=== PATIENT | female | born 1950 | race Caucasian/White ===

== ENCOUNTER 2018-03-20 15:29 | Emergency (ER) | payer MEDICARE, OTHER ==
[~2018-03-20] VITALS: Ht 149.9 cm; Wt 52.2 kg
[~2018-03-20 15:29] MED LIST: ASPIR 8181 MG PO; LISINOPRIL10 MG PO; SINGULAIR 10 MG10 M1 PO
[2018-03-20] MEDS ORDERED: SYMBICORT160 MCG/4. INH (15:39)
[2018-03-20] MEDS ORDERED: DEXILANT60 MG PO (15:39)
[2018-03-20 16:02] LABS: ABSOLUTE MONOCYTES 0.4 thou/uL (0.0-1.2); ABSOLUTE NEUTROPHILS 2.9 thou/uL (1.6-8.1); BASOPHILS 0.7 %; EOSINOPHILS 0.8 %; HEMATOCRIT 37.5 % (37.0-47.0); HEMOGLOBIN 12.9 gm/dL (12.0-15.0); LYMPHOCYTES 22.7 %; MCH 33.3 pg (26.0-34.0); MCHC 34.4 g/dL (28.0-37.0); MCV 96.8 fL (80.0-100.0); MPV 7.1 fl. (7.2-11.1); NUCLEATED RBCS 0 /100WBC; PLATELET COUNT* 272 thou/uL (150-400); POLYS 66.8 %; RBC 3.87 mil/uL (4.20-5.00); WBC 4.4 thou/uL (4.0-11.0)
[2018-03-20 16:07] LABS: URINE BILIRUBIN NEGATIVE (Negative); URINE BLOOD 1+ (Negative); URINE CLARITY CLEAR; URINE COLOR YELLOW; URINE GLUCOSE-RANDOM NEGATIVE (Negative); URINE KETONES NEGATIVE (Negative); URINE LEUKOCYTES-REFLEX 1+ (Negative); URINE NITRITE-REFLEX NEGATIVE (Negative); URINE PROTEIN NEGATIVE (Negative); URINE SPECIFIC GRAVITY <= 1.005 (1.005-1.030); URINE UROBILINOGEN 0.2 E.U./dl (0.2-1.0)
[2018-03-20 16:10] LABS: ANION GAP 9 mmol/L (7-16); BUN 6 mg/dL (7-18); CALCIUM 8.7 mg/dL (8.5-10.1); CHLORIDE 91 mmol/L (98-107); CO2 25 mmol/L (21-32); CREATININE 0.7 mg/dL (0.6-1.3); GLUCOSE 93 mg/dL (70-99); POTASSIUM 3.9 mmol/L (3.5-5.1); SODIUM 125 mmol/L (136-145)
[2018-03-20 16:15] LABS: BACTERIA-REFLEX None Seen /HPF (None Seen); CASTS None Seen /LPF (None Seen); CRYSTALS None Seen /LPF (None Seen); SQUAMOUS 0-3 Few /LPF (0-3); URINE RBC 0-2 Rare /HPF (0-2); URINE WBC-REFLEX 0-5 Rare /HPF (0-5)
[2018-03-20 16:40] LABS: ALBUMIN 4.1 g/dL (3.4-5.0); ALKALINE PHOSPHATASE 122 U/L (46-116); CK-MB MASS 1.8 ng/mL (<0.5-3.6); SGOT 17 U/L (15-37); SGPT 22 U/L (30-65); TOTAL BILIRUBIN 0.3 mg/dL (<0.1-1.0); TOTAL PROTEIN 7.1 g/dL (6.4-8.2); TROPONIN-I LEVEL <0.06 ng/mL (<0.06)
[2018-03-20] MEDS ORDERED: CIPRO500 MG PO (16:50)
[2018-03-20] MEDS ORDERED: ACETAMINOPHEN-1 EAC1 PO (16:50)
[2018-03-20 16:56] VITALS: BP 144/85
--- NOTE | 2018-03-22 13:30 | EKG ---
[place] [address] ELECTROCARDIOGRAM REPORT Name: YAS JIMENEZ [id number] Admission: 03/20/18 Attend Phys: Discharge: 03/20/18 Date of : 48 Report #: [id number] THIS REPORT FOR: //name// [facility] ED Test Date: 2018-03-20 Test Time: 16:03:48 Pat Name: YAS JIMENEZ Department: Room: Gender: F Catering Driver: : 1950 Requested By: Deborah Rivera Order Number: [id number] MD: Milton Holbrook Measurements Intervals [place] Rate: 79 P: 31 UT: 147 QRS: 63 QRSD: 107 T: 31 QT: 386 QTc: 443 Interpretive Statements Sinus rhythm Probable left atrial enlargement Compared to ECG 09/22/2012 09:25:38 No significant changes Electronically Signed On 03-22-2018 13:29:42 CDT by Milton Holbrook [email or web address] <ELECTRONICALLY SIGNED> By: Milton Holbrook MD, [facility] 03/22/18 1329 1603 1603 Milton Holbrook MD, FACC /EPI
== END 2018-03-20 16:57 | disposition home or self-care (01) ==
LOC: M.ERS 15:29
PROVIDERS: Nurse Practitioner Family
DX: N39.0 Urinary tract infection, site not specified (principal); M54.6 Pain in thoracic spine; G43.909 Migraine, unspecified, not intractable, without status migrainosus; I10 Essential (primary) hypertension; Z88.6 Allergy status to analgesic agent

== ENCOUNTER → 2018-04-18 | Outpatient (CLI) | payer MEDICARE, OTHER ==
[~2018-04-18] MED LIST changes: +ACETAMINOPHEN-1 EAC1 PO; +CIPRO500 MG PO; +DEXILANT60 MG PO; +SYMBICORT160 MCG/4. INH
== END ==
LOC: M.MRI 15:52
DX: M51.24 Other intervertebral disc displacement, thoracic region (principal); J90 Pleural effusion, not elsewhere classified; G89.29 Other chronic pain; M54.2 Cervicalgia; I10 Essential (primary) hypertension; G43.909 Migraine, unspecified, not intractable, without status migrainosus; Z87.81 Personal history of (healed) traumatic fracture

== ENCOUNTER → 2018-08-24 | Outpatient (CLI) | payer MEDICARE, OTHER | LOC: M.RAD 10:40 | DX: Z12.31 Encounter for screening mammogram for malignant neoplasm of breast (principal) ==

== ENCOUNTER 2018-11-16 17:07 | Emergency (ER) | payer MEDICARE, OTHER ==
[~2018-11-16] VITALS: Ht 149.9 cm; Wt 50.8 kg
[2018-11-16] MEDS ORDERED: PROTONIX 20 MG20 M1 PO (17:22)
[2018-11-16] MEDS ORDERED: NORCO 5-325 TA1 EACH PO (19:52)
[2018-11-16 20:10] VITALS: BP 174/96
== END 2018-11-16 20:10 | disposition home or self-care (01) ==
LOC: M.ERS 17:07
DX: M25.521 Pain in right elbow (principal); I10 Essential (primary) hypertension; G43.909 Migraine, unspecified, not intractable, without status migrainosus; Z88.5 Allergy status to narcotic agent; Z88.8 Allergy status to other drugs, medicaments and biological substances

== ENCOUNTER → 2019-06-07 | Outpatient (CLI) | payer MEDICARE, OTHER ==
[~2019-06-07] MED LIST changes: +NORCO 5-325 TA1 EACH PO; +PROTONIX 20 MG20 M1 PO
== END ==
LOC: M.RAD 09:27
DX: M19.071 Primary osteoarthritis, right ankle and foot (principal)

== ENCOUNTER → 2019-08-15 | Outpatient (CLI) | payer MEDICARE, OTHER | LOC: M.RAD 09:50 | DX: Z12.31 Encounter for screening mammogram for malignant neoplasm of breast (principal) ==

== ENCOUNTER → 2020-08-06 | Outpatient (CLI) | payer MEDICARE, OTHER | LOC: M.RAD 12:57 | PROVIDERS: ATTEND Family Medicine | DX: Z12.31 Encounter for screening mammogram for malignant neoplasm of breast (principal) ==

== ENCOUNTER → 2020-12-15 | Outpatient (CLI) | payer MEDICARE, OTHER | LOC: M.RAD 13:32 | PROVIDERS: ATTEND Family Medicine | DX: M81.0 Age-related osteoporosis without current pathological fracture (principal); Z78.0 Asymptomatic menopausal state ==

== ENCOUNTER → 2021-08-06 | Outpatient (CLI) | payer MEDICARE, OTHER | LOC: M.RAD 12:15 | PROVIDERS: ATTEND Family Medicine | DX: Z12.31 Encounter for screening mammogram for malignant neoplasm of breast (principal) ==